=== PATIENT | female | born 1945 | race Caucasian/White ===

== ENCOUNTER 2019-02-05 08:33 | Day surgery (SDC) | payer OTHER ==
[~2019-02-05] VITALS: Ht 165.1 cm; Wt 79.6 kg
[~2019-02-05 08:33] MED LIST: MULT-1192 PO; SODIUM CHLORIDE 0.9% 1000ML 1,000 ML IV ONE
[2019-02-05 09:50] VITALS: BP 138/67
[2019-02-05] MEDS ORDERED: PROPOFOL 10 MG/ML 20ML VIAL IV ONE (10:26)
[2019-02-05 10:55] VITALS: BP 107/58
[2019-02-05 11:00] VITALS: BP 132/70
[2019-02-05 11:05] VITALS: BP 123/69
[2019-02-05 11:10] VITALS: BP 116/68
== END 2019-02-05 11:23 | disposition home or self-care (01) ==
LOC: ENDO 08:33 → DAH 08:33 → ENDO 11:23
PROVIDERS: ATTEND Internal Medicine Gastroenterology
DX: Z12.11 Encounter for screening for malignant neoplasm of colon (principal); D12.2 Benign neoplasm of ascending colon; K57.30 Diverticulosis of large intestine without perforation or abscess without bleeding; K21.9 Gastro-esophageal reflux disease without esophagitis; F41.9 Anxiety disorder, unspecified; Z88.5 Allergy status to narcotic agent; Z79.899 Other long term (current) drug therapy; Z86.010 Personal history of colon polyps; Z82.49 Family history of ischemic heart disease and other diseases of the circulatory system; Z83.3 Family history of diabetes mellitus; Z98.890 Other specified postprocedural states
CPT/HCPCS: 45380; 88305; A4215; A4221; A4222; A4223; A4606; A4615; A4663; J2704; J7030

== ENCOUNTER → 2023-12-31 | Outpatient (CLI) | payer OTHER ==
[~2023-12-31] MED LIST changes: +IOHEXOL 350 MG/ML 100ML INFUS..BTL IV ONE; -SODIUM CHLORIDE 0.9% 1000ML 1,000 ML IV ONE
--- NOTE | 2023-12-31 11:08 | HMCIMG ---
CT HEAD/BRAIN W/O CONTRAST HISTORY: Headaches COMPARISON: None TECHNIQUE: Multiple sequential axial images of the head were obtained from the base of the skull through vertex. Patient was not given contrast through intravenous route. FINDINGS: The ventricles and extraventricular CSF spaces are dilated consistent with cerebral atrophy. Nonspecific white matter changes seen. There is no midline shift, mass effect or herniation. No acute intracranial bleed is seen. Visualized portion of the paranasal sinuses are grossly within normal limits. IMPRESSION: 1. No acute intracranial bleed is seen. 2. Atrophy with white matter changes. CT was performed with one or more following dose reduction techniques: automated exposure control, adjustment of the mA and kv according to patient's size, or use of a iterative reconstruction technique.
--- NOTE | 2023-12-31 12:59 | HMCIMG ---
CT ORB/YANET/EAR W/WO CONTRAST HISTORY: OCCIPITAL HEADACHE/CERVICAL LYMPHADENOPATHY COMPARISON: None TECHNIQUE: Multiple sequential high resolution axial images of temporal bones were obtained. Post processing coronal reconstruction images were also obtained. Patient was given 75 cc of Omnipaque through intravenous route. FINDINGS: The ventricles and extraventricular CSF spaces are dilated consistent with atrophy. Nonspecific white matter changes are seen. No abnormal enhancement is seen. Normal aeration of middle ears and mastoid air cells are noted bilaterally. Internal auditory canals are grossly symmetric bilaterally. Both scuti are grossly intact. The ossicula chains are grossly intact bilaterally. Retropharyngeal soft tissue prominence is seen. IMPRESSION: 1. No evidence of otomastoiditis changes are seen. No abnormal enhancement is seen. Atrophy with white matter changes. CT was performed with one or more following dose reduction techniques: automated exposure control, adjustment of the mA and kv according to patient's size, or use of a iterative reconstruction technique.
== END | disposition home or self-care (01) ==
LOC: RAH 09:20
PROVIDERS: ATTEND Nurse Practitioner Family
DX: G31.89 Other specified degenerative diseases of nervous system (principal); J32.1 Chronic frontal sinusitis; R51.9 Headache, unspecified; R59.0 Localized enlarged lymph nodes
CPT/HCPCS: 70450; 70482; Q9967